=== PATIENT | male | born 1995 | race Caucasian/White ===

== ENCOUNTER 2018-04-08 11:19 | Emergency (ER) | payer OTHER ==
[2018-04-08 11:50] VITALS: BP 120/80; PULSE 52; RESP 16; TEMP 98.6
--- NOTE | 2018-04-08 12:12 | ED ---
Eye Problem HPI - General Chief complaint: Eye Problems Stated complaint: Eye injury Time Seen by Provider: 04/08/18 11:59 Source: patient Mode of arrival: ambulatory Limitations: no limitations - History of Present Illness Initial comments: This a 22-year-old male no past medical history presents today for chief complaint of blurred vision in the left eye. 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 He immediately noticed pain to left- sided face. And said that he saw stars. 3 days later he developed a subconjunctival hemorrhage, and some bruising below the eye. Since patient has been experiencing seeing darkening in the corner of the dye on the lateral aspect. 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 Patient denies any foreign body sensation, watering or photophobia, denies new onset of floaters, diplopia or pain with any extraocular eye movements. Patient denies any recent fever, chills, shortness of breath, chest pain, back pain, abdominal pain, nausea or vomiting, numbness or tingling, dysuria or hematuria, constipation or diarrhea, headaches or any other complaints. - Related Data Home Medications Medication Instructions Recorded Confirmed No Known Home Medications 04/08/18 04/08/18 Allergies Allergy/AdvReac Type Severity Reaction Status Date / Time No Known Allergies Allergy Verified 05/11/15 07:32 Review of Systems ROS Statement: Those systems with pertinent positive or pertinent negative responses have been documented in the HPI. ROS Other: All systems not noted in ROS Statement are negative. Constitutional: Denies: fever, chills Eyes: Reports: vision change. Denies: eye pain ENT: Denies: ear pain, throat pain Respiratory: Denies: cough, dyspnea Cardiovascular: Denies: chest pain, palpitations Gastrointestinal: Denies: abdominal pain, nausea, vomiting, diarrhea, constipation Genitourinary: Denies: urgency, dysuria Musculoskeletal: Denies: back pain Skin: Denies: rash, lesions Neurological: Denies: headache, weakness, numbness, paresthesias, confusion Past Medical History Past Medical History: No Reported History History of Any Multi-Drug Resistant Organisms: None Reported Past Surgical History: No Surgical Hx Reported Past Psychological History: Anxiety, Bipolar, Depression Smoking Status: Never smoker Past Alcohol Use History: Occasional Past Drug Use History: Marijuana General Exam - General Exam Comments Initial Comments: General: The patient is awake and alert, in no distress, and does not appear acutely ill. Eye: Mild soft tissue swelling over left lateral face just superior to the left orbit. Ecchymosis below left eye. Visual acuity 20/25 OS, 20/20 OD, 20/20 both eyes. +3 mm pupils are equal, round and reactive to light, extra-ocular movements are intact- no pain with EOM. No APD noted. Subconjunctival hemorrhage present on the lateral aspect of the left eye. There is normal conjunctiva of the right eye. No signs of icterus. Visual amaro intact to confrontation. Fluorescein examination revealed no areas of uptake, (-) siedel sign. No evidence of foreign body. Rectal examination performed however limited to no dilation, no obvious retinal abnormalities. IOP 18 b/l. Ears, nose, mouth and throat: There are moist mucous membranes and no oral lesions. Cardiovascular: There is a regular rate and rhythm. No murmur, rub or gallop is appreciated. Respiratory: Lungs are clear to auscultation, respirations are non-labored, breath sounds are equal. No wheezes, stridor, rales, or rhonchi. Musculoskeletal: Normal ROM, no tenderness. Strength 5/5. Sensation intact. Pulses equal bilaterally 2+. Neurological: A&O x 3. CN II-XII intact, There are no obvious motor or sensory deficits. Coordination appears grossly intact. Speech is normal. Skin: Skin is warm and dry and no rashes or lesions are noted. Psychiatric: Cooperative, appropriate mood & affect, normal judgment. Limitations: no limitations Course Vital Signs 04/08/18 11:46 Temperature 98.6 F Pulse Rate 52 L Respiratory 16 Rate Blood Pressure 120/80 O2 Sat by Pulse 97 Oximetry Medical Decision Making - Medical Decision Making given pt hx i was concerned for possible early retinal detachment or retinal injury. Dr. Harmon was paged, who instructed us to send pt immediately following discharge from ER to his office for further evaluation. Dr. Harmon does not have the resources available here for examination in house. Pt agreed and was stable to drive to the appointment. XR was obtained of the facial bones due to history of mild facial trauma, no evidence of orbital fracture seen by radiologist. pt denied diplopia, pain with EOM and there was no abnormalities noted on EOM examination. Case discussed with Dr. Mehta, who agrees with impression and plan. Pt was given instructions to go directly to Dr. Harmon, address supplied to pt. Pt d/c in stable condition. Disposition Clinical Impression: Changes in vision Narrative: possible retinal injury; being sent to Dr. Harmon for further evaluation. Disposition: HOME SELF-CARE Condition: Good Instructions: Subconjunctival Hemorrhage (ED) Additional Instructions: Please GO DIRECTLY TO DR. HARMON OFFICE immediately as discussed for further evaluation and treatment. [facility] [address] [place], [place]. Please return to emergency room if the symptoms increase or worsen or for any other concerns. Is patient prescribed a controlled substance at d/c from ED?: No Referrals: Lesa Bashir DO [Primary Care Provider] - 1-2 days Ariel Kruse MD [STAFF PHYSICIAN] - 04/08/18 Time of Disposition: 13:09
--- NOTE | 2018-04-08 13:03 | XR ---
EXAMINATION TYPE: XR facial bones complete DATE OF EXAM: 04/08/2018 COMPARISON: NONE HISTORY: Pain TECHNIQUE: 3 views submitted FINDINGS: Mucosal thickening involving the maxillary sinuses suggestive of sinusitis. No air-fluid le vels. Visualized nasal bones are intact. Lucency involving the nasal ethmoid plate. IMPRESSION: 1. No evidence of orbital fracture 2. Nasal septal deviation C and lucency near the ethmoidal plate. Correlate with point tenderness for nasal bone fracture.
== END 2018-04-08 13:16 | disposition home or self-care (01) ==
LOC: EC 11:19
DX: H53.8 Other visual disturbances (principal)
CPT/HCPCS: 70150; 99283

== ENCOUNTER 2018-06-11 08:48 | Emergency (ER) | payer OTHER ==
[2018-06-11] MEDS ORDERED: CYCLOBENZAPRINE 10MG STARTER 3 TAB BTL PO STA (09:19)
[2018-06-11] MEDS ORDERED: IBUPROFEN 600 MG STARTER PACK 4 TAB BTL PO STA (09:19)
--- NOTE | 2018-06-11 09:21 | ED ---
Back Pain HPI - General Chief Complaint: Back Pain/Injury Stated Complaint: Back pain Time Seen by Provider: 06/11/18 09:05 Source: patient, RN notes reviewed, old records reviewed Limitations: no limitations - History of Present Illness Initial Comments: Patient is a 22-year-old male presents emergency department today with chief complaint of right-sided back pain. Worse over the past few weeks. Patient reports that he has had bronchitis a few weeks ago. Initially started noticed this back pain when he was coughing a lot. He states that the back pain is worse with movement and at work. Patient reports that he has had no hearing symptoms, denies any nausea vomiting or dental pain. Denies any hematuria. 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 a pinching sensation.Patient denies any recent fever, chills, shortness of breath, chest pain,abdominal pain, nausea vomiting, numbness or tingling, dysuria or hematuria , constipation or diarrhea, headaches or visual changes, or any other current symptoms - Related Data Home Medications Medication Instructions Recorded Confirmed Naphazoline HCl/Glycerin [Clear 1 drop BOTH EYES DAILY 06/11/18 06/11/18 Eyes Max Redness Rlf Drp] Previous Rx's Medication Instructions Recorded Azithromycin [Zithromax Z-pack] 250 mg PO DIRECTED #6 tab 06/11/18 Cyclobenzaprine [Flexeril] 10 mg PO TID #9 tab 06/11/18 Ibuprofen 600 mg PO TID #20 tablet 06/11/18 Ibuprofen [Motrin] 600 mg PO Q8HR PRN #20 tab 06/11/18 Allergies Allergy/AdvReac Type Severity Reaction Status Date / Time No Known Allergies Allergy Verified 06/11/18 09:37 Review of Systems ROS Statement: Those systems with pertinent positive or pertinent negative responses have been documented in the HPI. ROS Other: All systems not noted in ROS Statement are negative. Past Medical History Past Medical History: No Reported History History of Any Multi-Drug Resistant Organisms: None Reported Past Surgical History: No Surgical Hx Reported Past Psychological History: Anxiety, Bipolar, Depression Smoking Status: Current every day smoker Past Alcohol Use History: Occasional Past Drug Use History: Marijuana General Exam - General Exam Comments Initial Comments: This is a 22-year-old male. Alert and oriented. Patient appears in no acute distress. Limitations: no limitations General appearance: alert, in no apparent distress Head exam: Present: atraumatic, normocephalic, normal inspection Eye exam: Present: normal appearance, PERRL, EOMI. Absent: scleral icterus, conjunctival injection, periorbital swelling ENT exam: Present: normal exam, mucous membranes moist Neck exam: Present: normal inspection. Absent: tenderness, meningismus, lymphadenopathy Respiratory exam: Present: normal lung sounds bilaterally, chest wall tenderness (Patient is tenderness over the right lower ribs 9 through 10. Evidence of right sided thoracic paraspinal muscle spasm.). Absent: respiratory distress, wheezes, rales, rhonchi, stridor Cardiovascular Exam: Present: regular rate, normal rhythm, normal heart sounds. Absent: systolic murmur, diastolic murmur, rubs, gallop, clicks GI/Abdominal exam: Present: soft, normal bowel sounds. Absent: distended, tenderness, guarding, rebound, rigid Extremities exam: Present: normal inspection, full ROM, normal capillary refill. Absent: tenderness, pedal edema, joint swelling, calf tenderness Back exam: Present: normal inspection Neurological exam: Present: alert, oriented X3, CN II-XII intact Course Vital Signs 06/11/18 08:57 Temperature 98.0 F Pulse Rate 64 Respiratory 20 Rate Blood Pressure 134/76 O2 Sat by Pulse 100 Oximetry Medical Decision Making - Medical Decision Making 22-year-old male present 0. Right-sided back pain. He reports it occurred after he was suffered from bronchitis having prolonged coughing. He has tender over the right thoracic spine. Evidence of paraspinal muscle spasm. Patient's chest x-ray today shows evidence of a left lower lobe opacity can't exclude pneumonia. He has no significant coughing at this time. Likely resolving from his bronchitis. Patient has no fever and oxygen sats 100% on room air. I discussed at this time I'll put the Patient on muscle relaxers and for anti- inflammatory medication. Written a note for work. I discussed close follow-up with primary care physician he has a cough for further symptoms he should return for reevaluation. - Radiology Data Radiology results: report reviewed New focal left lower lobe opacity. Unable to exclude developing pneumonia here. Disposition Clinical Impression: Pain in paraspinal region, Spasm of back muscles, Left pulmonary infiltrate on CXR Disposition: HOME SELF-CARE Condition: Good Instructions: Acute Low Back Pain (ED) Additional Instructions: Patient has a follow-up with primary care provider. Return to emergency department if any alarming signs or symptoms occur. Take medications as prescribed. Prescriptions: Azithromycin [Zithromax Z-pack] 250 mg PO DIRECTED #6 tab Cyclobenzaprine [Flexeril] 10 mg PO TID #9 tab Ibuprofen [Motrin] 600 mg PO Q8HR PRN #20 tab PRN Reason: Pain Ibuprofen 600 mg PO TID #20 tablet Is patient prescribed a controlled substance at d/c from ED?: No Referrals: Lesa Bashir DO [Primary Care Provider] - 1-2 days Time of Disposition: 10:24
--- NOTE | 2018-06-11 09:39 | XR ---
EXAMINATION TYPE: XR chest 2V DATE OF EXAM: 06/11/2018 COMPARISON: 06/25/2011 HISTORY: 22-year-old male with pain. TECHNIQUE: PA and lateral views FINDINGS: The cardiomediastinal silhouette, aorta, and pulmonary vasculature are within normal limits. There is no focal left lower lobe opacity. No pleural effusion. No pneumothorax. IMPRESSION: New focal left lower lobe opacity. Unable to exclude developing pneumonia here.
[2018-06-11 10:35] VITALS: BP 134/79; PULSE 84; RESP 18; TEMP 97.4
== END 2018-06-11 10:35 | disposition home or self-care (01) ==
LOC: EC 08:48
DX: M62.830 Muscle spasm of back (principal); R91.8 Other nonspecific abnormal finding of lung field; F17.200 Nicotine dependence, unspecified, uncomplicated; Z79.899 Other long term (current) drug therapy
CPT/HCPCS: 71046; 99284

== ENCOUNTER 2019-01-10 17:26 | Emergency (ER) | payer OTHER ==
[2019-01-10 17:37] VITALS: RESP 18
[2019-01-10] MEDS ORDERED: IBUPROFEN 800 MG TAB PO STA (17:59)
[2019-01-10] MEDS ORDERED: ACETAMINOPHEN TAB 500 MG TAB PO STA (17:59)
--- NOTE | 2019-01-10 18:02 | ED ---
General Adult HPI - General Chief complaint: Extremity Injury, Upper Stated complaint: Hand injury Time Seen by Provider: 01/10/19 17:50 Source: patient Mode of arrival: ambulatory Limitations: no limitations - History of Present Illness Initial comments: Patient is a 23-year-old male who presents with a chief complaint of left hand pain. This started at 4:00 after hitting a punching bag without gloves on. Patient states he is having pain on the medial aspect of his hand, on the dorsal side. It isn't initially was having pain up to his elbow but that pain has since subsided. He states he has some paresthesias of the fourth and fifth digit on his left hand, but is otherwise able to feel them. Characterizes his pain is sharp, worse with movement, no alleviating factors, he is not taking any medications for pain. - Related Data Home Medications Medication Instructions Recorded Confirmed Naphazoline HCl/Glycerin [Clear 1 drop BOTH EYES DAILY 06/11/18 06/11/18 Eyes Max Redness Rlf Drp] Previous Rx's Medication Instructions Recorded Azithromycin [Zithromax Z-pack] 250 mg PO DIRECTED #6 tab 06/11/18 Cyclobenzaprine [Flexeril] 10 mg PO TID #9 tab 06/11/18 Ibuprofen 600 mg PO TID #20 tablet 06/11/18 Ibuprofen [Motrin] 600 mg PO Q8HR PRN #20 tab 06/11/18 Allergies Allergy/AdvReac Type Severity Reaction Status Date / Time No Known Allergies Allergy Verified 01/10/19 17:37 Review of Systems ROS Statement: Those systems with pertinent positive or pertinent negative responses have been documented in the HPI. ROS Other: All systems not noted in ROS Statement are negative. Musculoskeletal: Reports: joint swelling, arthralgia Past Medical History Past Medical History: No Reported History History of Any Multi-Drug Resistant Organisms: None Reported Past Surgical History: No Surgical Hx Reported Past Psychological History: Anxiety, Bipolar, Depression Smoking Status: Current every day smoker Past Alcohol Use History: Occasional Past Drug Use History: Marijuana General Exam Limitations: no limitations General appearance: alert Head exam: Present: atraumatic, normocephalic Eye exam: Present: normal appearance ENT exam: Present: normal exam Neck exam: Present: normal inspection Respiratory exam: Present: normal lung sounds bilaterally. Absent: respiratory distress, wheezes Cardiovascular Exam: Present: regular rate, normal rhythm GI/Abdominal exam: Present: soft. Absent: distended, tenderness Rectal exam: Present: deferred Extremities exam: Present: other (Patient has swelling of the mid hand on the distal aspect, medial side. There is tenderness to palpation of the fifth metacarpal, no obvious deformity though examination is limited secondary to swelling. Patient is neurologically and vascularly intact bilaterally in the upper extremities.) Back exam: Present: normal inspection Neurological exam: Present: alert, oriented X3, CN II-XII intact, normal gait Psychiatric exam: Present: normal affect Skin exam: Present: warm, dry, intact Course Vital Signs 01/10/19 17:35 Temperature 98.7 F Pulse Rate 69 Respiratory 18 Rate Blood Pressure 166/63 O2 Sat by Pulse 100 Oximetry Medical Decision Making - Medical Decision Making The results of the chief complaint of left hand pain after hitting a punching bag. On initial evaluation, vitals are stable, patient is no acute distress. Patient is sent for an x-ray of the left hand rule out boxer's fracture. He was given Motrin and Tylenol for pain. X-rays show a boxer's fracture that is mildly angulated. This time, she'll be placed in a splint, is instructed to follow-up with orthopedics in one to 2 days, he was given contact information. Patient started taking Motrin for pain, is written a short course of Eclectic for severe pain. A long discussion with the patient about the use of this medication. Patient understands that he should not drive, work, doing and they put himself or others at risk of using this medication. Disposition Clinical Impression: Boxers fracture Disposition: HOME SELF-CARE Condition: Good Instructions (If sedation given, give patient instructions): Boxer Fracture (ED) Is patient prescribed a controlled substance at d/c from ED?: Yes When asked, does pt state using other controlled substances?: No If prescribed controlled substance>3 days was MAPS reviewed?: Prescribed <3 Days If opioid is for acute pain is fill amount 7 days or less?: Yes If Rx opioid, was Start Talking consent form obtained?: Yes Referrals: Lesa Bashir DO [Primary Care Provider] - 1-2 days Tomas Ibanez MD [STAFF PHYSICIAN] - 1-2 days
--- NOTE | 2019-01-10 18:50 | XR ---
EXAMINATION TYPE: XR hand complete LT DATE OF EXAM: 01/10/2019 CLINICAL HISTORY: Finger pain TECHNIQUE: Frontal, lateral and oblique images of the left hand are obtained. COMPARISON: None FINDINGS: Transversely oriented fracture is seen of the left fifth metacarpal involving the distal metadiaphysi s. There is no evidence of intra-articular extension of this fracture. There is dorsal angulation. No additional fractures are evident. Soft tissue swelling is seen in this region. No radiopaque foreign bodies. IMPRESSION: Transversely oriented dorsally angulated fifth metacarpal distal metadiaphyseal fracture.
[2019-01-10] MEDS ORDERED: HYDROcodone/APAP 5-325MG 1 EACH TAB PO STA (19:05)
[2019-01-10 19:31] VITALS: BP 150/80; PULSE 72; TEMP 97.9
== END 2019-01-10 19:31 | disposition home or self-care (01) ==
LOC: EC 17:26
DX: S62.307A Unspecified fracture of fifth metacarpal bone, left hand, initial encounter for closed fracture (principal); F17.200 Nicotine dependence, unspecified, uncomplicated; W21.89XA Striking against or struck by other sports equipment, initial encounter
CPT/HCPCS: 99283

== ENCOUNTER 2020-02-20 13:49 | Emergency (ER) | payer OTHER ==
[2020-02-20 14:02] VITALS: RESP 18; TEMP 97.9
[2020-02-20] MEDS ORDERED: SODIUM CHLORIDE 0.9% 1,000 ML IV STA (14:23)
[2020-02-20] MEDS ORDERED: KETOROLAC 30 MG/ML 1 ML VIAL IVP STA (14:23)
[2020-02-20 14:53] LABS: Basophils % (A) 1 %; Eosinophils # (A) 0.4 k/uL (0-0.7); Eosinophils % (A) 9 %; HCT 47.9 % (39.0-53.0); HGB 16.5 gm/dL (13.0-17.5); Lymphocytes # (A) 1.3 k/uL (1.0-4.8); Lymphocytes % (A) 30 %; MCH 31.1 pg (25.0-35.0); MCHC 34.5 g/dL (31.0-37.0); MCV 90.1 fL (80.0-100.0); Mean Platelet Volume 7.3; Monocytes # (A) 0.3 k/uL (0-1.0); Monocytes % (A) 6 %; Neutrophils # (A) 2.3 k/uL (1.3-7.7); Neutrophils % (A) 53 %; Platelet Count 234 k/uL (150-450); RBC 5.31 m/uL (4.30-5.90); RDW 12.1 % (11.5-15.5); WBC 4.4 k/uL (3.8-10.6)
--- NOTE | 2020-02-20 15:03 | ED ---
General Adult HPI - General Source: patient Mode of arrival: ambulatory Limitations: no limitations <Sadaf Pal - Last Filed: 02/20/20 16:42> <Linnette Blevins - Last Filed: 02/24/20 16:28> - General Chief complaint: Extremity Injury, Lower Stated complaint: R side abd pain Time Seen by Provider: 02/20/20 14:03 - History of Present Illness Initial comments: 24-year-old male patient presents to the emergency department today for evaluation of right hip and right lower abdominal pain. Patient states he has been having pain to the right hip for quite some time now. 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 The patient states that he has been doing her stretching regimen to aid in the hip pain. He states yesterday morning he woke up in the pain is in his right lower abdomen radiating down the leg. States it radiates to about mid thigh level. Denies any pain radiation to the testicles. Denies any testicular swelling or tenderness. He denies any nausea, vomiting, constipation, or diarrhea. Denies hematuria, dysuria, urinary frequency, urinary urgency. States the pain does worsen with movement. He did try taking ibuprofen, baclofen, [place] without relief. Denies fever or chills. Denies history of abdominal surgery. Patient denies any recent rash, cough, shortness of breath, chest pain, back pain, numbness, tingling, dizziness, weakness, headache, visual changes, or any other complaints. (Sadaf aPl) - Related Data Home Medications Medication Instructions Recorded Confirmed Ibuprofen [Motrin Ib] 200 mg PO Q8H PRN 02/20/20 02/20/20 Previous Rx's Medication Instructions Recorded Cyclobenzaprine [Flexeril] 10 mg PO TID #15 tab 02/20/20 Ketorolac [Toradol] 10 mg PO Q6HR #12 tab 02/20/20 Allergies Allergy/AdvReac Type Severity Reaction Status Date / Time No Known Allergies Allergy Verified 02/20/20 14:43 Review of Systems ROS Other: All systems not noted in ROS Statement are negative. <Sadaf Pal - Last Filed: 02/20/20 16:42> ROS Other: All systems not noted in ROS Statement are negative. <Linnette Blevins - Last Filed: 02/24/20 16:28> ROS Statement: Those systems with pertinent positive or pertinent negative responses have been documented in the HPI. Past Medical History Past Medical History: No Reported History History of Any Multi-Drug Resistant Organisms: None Reported Past Surgical History: No Surgical Hx Reported Past Psychological History: Anxiety, Bipolar, Depression Smoking Status: Current every day smoker Past Alcohol Use History: Occasional Past Drug Use History: Marijuana <Sadaf Pal - Last Filed: 02/20/20 16:42> General Exam Limitations: no limitations General appearance: alert, in no apparent distress, other (This is a well- developed, well-nourished adult male patient in no acute distress. Vital signs upon presentation are temperature 97.9F, pulse 58, respirations 18, blood pressure 119/77, pulse ox 100% on room air.) Eye exam: Present: normal appearance, PERRL, EOMI. Absent: scleral icterus, conjunctival injection, periorbital swelling ENT exam: Present: normal exam, normal oropharynx, mucous membranes moist Respiratory exam: Present: normal lung sounds bilaterally. Absent: respiratory distress, wheezes, rales, rhonchi, stridor Cardiovascular Exam: Present: regular rate, normal rhythm, normal heart sounds. Absent: systolic murmur, diastolic murmur, rubs, gallop, clicks GI/Abdominal exam: Present: soft, tenderness (Right upper quadrant, right lower quadrant, suprapubic), normal bowel sounds. Absent: distended, guarding, rebou nd, rigid Neurological exam: Present: alert, oriented X3, CN II-XII intact Psychiatric exam: Present: normal affect, normal mood Skin exam: Present: warm, dry, intact, normal color. Absent: rash <Sadaf Pal - Last Filed: 02/20/20 16:42> Course Vital Signs 02/20/20 02/20/20 13:58 15:58 Temperature 97.9 F Pulse Rate 58 L 60 Respiratory 18 18 Rate Blood Pressure 119/77 120/70 O2 Sat by Pulse 100 98 Oximetry Medical Decision Making - Lab Data Result diagrams: 02/20/20 14:38 02/20/20 14:38 <Sadaf Pal - Last Filed: 02/20/20 16:42> - Lab Data Result diagrams: 02/20/20 14:38 02/20/20 14:38 <Linnette Blevins - Last Filed: 02/24/20 16:28> - Medical Decision Making 24 year-old male patient presents to the emergency department today for evaluation of right hip pain radiating into his abdomen and thigh. Patient believes this is a strain from doing tae cinthia do and lifting a propane tank at work. Physical examination did reveal suprapubic, right lower quadrant, and right upper quadrant tenderness. Patient has no associated symptoms. No fever or chills. Vital signs are unremarkable. Labs reviewed and revealed normal white blood cell count, negative CRP, and otherwise unremarkable. Urinalysis did show 24 white blood cells, leukocyte esterase, bacteria. This was sent for culture however there is concern for sexually transmitted infection so we will treat with a azithromycin and Rocephin and send urine for culture. I did discuss findings and results with the patient. We did discuss muscle strain as a cause for his symptoms. He will be given a course of Toradol and muscle relaxers. Is instructed to follow-up with his primary care physician for recheck in 1-2 days. Return parameters discussed in detail. He verbalizes understanding and agrees with this plan. (Sadaf Pal) I was available for consultation in the emergency department. The history and physical exam were done by the midlevel provider. I was consulted for this patients care. I reviewed the case with the midlevel provider and based on their presentation of the patient, I agree with the assessment, medical decision making and plan of care as documented. Chart was dictated using [employer] dictation software. Attempts were made to correct any dictation errors however some typographical errors may persist. Patient was seen during a national state of emergency due to the Covid-19 pandemic. (Linnette Blevins) - Lab Data Lab Results 02/20/20 02/20/20 02/20/20 Range/Units 14:38 14:38 15:07 WBC 4.4 (3.8-10.6) k/uL RBC 5.31 (4.30-5.90) m/uL Hgb 16.5 (13.0-17.5) gm/dL Hct 47.9 (39.0-53.0) % MCV 90.1 (80.0-100.0) fL MCH 31.1 (25.0-35.0) pg MCHC 34.5 (31.0-37.0) g/dL RDW 12.1 (11.5-15.5) % Plt Count 234 (150-450) k/uL Neutrophils % 53 % Lymphocytes % 30 % Monocytes % 6 % Eosinophils % 9 % Basophils % 1 % Neutrophils # 2.3 (1.3-7.7) k/uL Lymphocytes # 1.3 (1.0-4.8) k/uL Monocytes # 0.3 (0-1.0) k/uL Eosinophils # 0.4 (0-0.7) k/uL Basophils # 0.0 (0-0.2) k/uL Sodium 137 (137-145) mmol/L Potassium 4.6 (3.5-5.1) mmol/L Chloride 103 (98-107) mmol/L Carbon Dioxide 25 (22-30) mmol/L Anion Gap 9 mmol/L BUN 12 (9-20) mg/dL Creatinine 0.84 (0.66-1.25) mg/dL Est GFR (CKD-EPI)AfAm >90 (>60 ml/min/1.73 sqM) Est GFR (CKD-EPI)NonAf >90 (>60 ml/min/1.73 sqM) Glucose 101 H (74-99) mg/dL Calcium 9.9 (8.4-10.2) mg/dL Total Bilirubin 1.0 (0.2-1.3) mg/dL AST 35 (17-59) U/L ALT 26 (4-49) U/L Alkaline Phosphatase 64 (38-126) U/L C-Reactive Protein <5.0 (<10.0) mg/L Total Protein 8.0 (6.3-8.2) g/dL Albumin 5.0 (3.5-5.0) g/dL Amylase 52 (30-110) U/L Lipase 33 (23-300) U/L Urine Color Yellow Urine Appearance Clear (Clear) Urine pH 7.5 (5.0-8.0) Ur Specific [place] 1.023 (1.001-1.035) Urine Protein Trace H (Negative) Urine Glucose (UA) Negative (Negative) Urine Ketones Negative (Negative) Urine Blood Negative (Negative) Urine Nitrite Negative (Negative) Urine Bilirubin Negative (Negative) Urine Urobilinogen 3.0 (<2.0) mg/dL Ur Leukocyte Esterase Moderate H (Negative) Urine RBC 3 (0-5) /hpf Urine WBC 24 H (0-5) /hpf Urine Mucus Few H (None) /hpf Disposition Is patient prescribed a controlled substance at d/c from ED?: No Time of Disposition: 15:56 <KaeSadaf M - Last Filed: 02/20/20 16:42> <Serjio Blevinsah Pb - Last Filed: 02/24/20 16:28> Clinical Impression: Strain of right hip, Abdominal pain Disposition: HOME SELF-CARE Condition: Good Instructions (If sedation given, give patient instructions): Muscle Strain (ED), Abdominal Pain (ED) Additional Instructions: Take medications as directed. Apply ice alternating with heat to the right hip and abdomen for relief of pain and inflammation. Follow-up with your primary care physician for recheck in 1-2 days. Follow up with orthopedics if her symptoms are improved after one week. Return to the emergency department immediately for any new, worsening, or concerning symptoms. Prescriptions: Cyclobenzaprine [Flexeril] 10 mg PO TID #15 tab Ketorolac [Toradol] 10 mg PO Q6HR #12 tab Referrals: Lesa Bashir DO [Primary Care Provider] - 1-2 days
[2020-02-20 15:05] LABS: ALT 26 U/L (4-49); AST 35 U/L (17-59); African American GFR (CKD) >90 (>60 ml/min/1.73 sqM); Alkaline Phosphatase 64 U/L (38-126); Amylase 52 U/L (30-110); Anion Gap 9 mmol/L; Blood Urea Nitrogen 12 mg/dL (9-20); C Reactive Protein <5.0 mg/L (<10.0); Calcium 9.9 mg/dL (8.4-10.2); Carbon Dioxide 25 mmol/L (22-30); Chloride 103 mmol/L (98-107); Glucose 101 mg/dL (74-99); Non-African American GFR(CKD) >90 (>60 ml/min/1.73 sqM); Potassium 4.6 mmol/L (3.5-5.1); Sodium 137 mmol/L (137-145)
--- NOTE | 2020-02-20 15:28 | XR ---
EXAMINATION TYPE: XR Hip RT and AP Pelvis DATE OF EXAM: 02/20/2020 COMPARISON: NONE HISTORY: Pain TECHNIQUE: 3 views FINDINGS: I see no fracture nor dislocation. Joint spaces are fairly normal. Sacroiliac joints appear intact. Pelvic ring is intact. IMPRESSION: No acute abnormality of the pelvis and right hip.
[2020-02-20 15:32] LABS: Appearance,Urine Clear (Clear); Bilirubin,Urine Negative (Negative); Blood,Urine Negative (Negative); Color,Urine Yellow; Glucose,Urine (UA) Negative (Negative); Ketones,Urine Negative (Negative); Leukocyte Esterase,Urine Moderate (Negative); Mucus,Urine Few /hpf; Nitrite,Urine Negative (Negative); PH, Urine 7.5 (5.0-8.0); Protein,Urine Trace (Negative); RBC,Urine 3 /hpf (0-5); Specific Gravity,Urine 1.023 (1.001-1.035); WBC,Urine 24 /hpf (0-5)
[2020-02-20] MEDS ORDERED: cefTRIAXone 250 MG VIAL IM STA (15:55)
[2020-02-20] MEDS ORDERED: AZITHROMYCIN 500 MG TAB PO STA (15:55)
[2020-02-20 16:05] VITALS: BP 120/70; PULSE 60
== END 2020-02-20 16:08 | disposition home or self-care (01) ==
LOC: EC 13:49
DX: S76.011A Strain of muscle, fascia and tendon of right hip, initial encounter (principal); R10.31 Right lower quadrant pain; R82.998 Other abnormal findings in urine; F17.200 Nicotine dependence, unspecified, uncomplicated; X50.0XXA Overexertion from strenuous movement or load, initial encounter; Y93.89 Activity, other specified; Y92.69 Other specified industrial and construction area as the place of occurrence of the external cause
CPT/HCPCS: 36415; 80053; 82150; 83690; 85025; 86140; 81001; 87086; 73502; 99284; 96372; 96374; 96361; J0696; J1885

== ENCOUNTER → 2020-03-02 | Outpatient (CLI) | payer OTHER ==
--- NOTE | 2020-03-02 08:11 | US ---
EXAMINATION TYPE: US abdomen complete DATE OF EXAM: 03/02/2020 COMPARISON: NONE CLINICAL HISTORY: 24-year-old male R10.31 RT lower quadrant pain. TECHNIQUE: Multiple sonographic images of the abdomen are obtained. FINDINGS: EXAM MEASUREMENTS: Liver Length: 18.7 cm Gallbladder Wall: 0.2 cm CBD: 0.3 cm Spleen: 10.5 cm Right Kidney: 11.5 x 5.8 x 4.3 cm Left Kidney: 11.6 x 5.8 x 5.3 cm Pancreas: wnl Liver: Normal echotexture. No focal lesion. Gallbladder: wnl Evidence for sonographic Hester's sign: No CBD: wnl Spleen: wnl Kidneys: No hydronephrosis. Upper IVC: wnl Abd Aorta: wnl IMPRESSION: 1. Mild hepatomegaly at 18.7 cm. 2. Otherwise, unremarkable sonographic examination of the abdomen.
== END | disposition home or self-care (01) ==
LOC: RADUSWWP 07:31
PROVIDERS: ATTEND Family Medicine
DX: R16.0 Hepatomegaly, not elsewhere classified (principal); R10.31 Right lower quadrant pain
CPT/HCPCS: 76700

== ENCOUNTER 2020-12-05 19:31 | Emergency (ER) | payer OTHER ==
[2020-12-05 20:17] VITALS: BP 109/63; PULSE 53; RESP 20; TEMP 98.2
--- NOTE | 2020-12-05 20:52 | XR ---
EXAMINATION TYPE: XR foot complete RT DATE OF EXAM: 12/05/2020 COMPARISON: NONE HISTORY: Foot pain TECHNIQUE: 3 views FINDINGS: Metatarsals are intact. I see no fracture nor dislocation. Joint spaces are normal. There a re no erosions. IMPRESSION: Negative right foot exam.
--- NOTE | 2020-12-05 20:53 | XR ---
EXAMINATION TYPE: XR ankle complete RT DATE OF EXAM: 12/05/2020 COMPARISON: NONE HISTORY: Foot pain ankle pain TECHNIQUE: 3 views FINDINGS: Ankle mortise is anatomic. I see no fracture nor dislocation. Joint spaces are normal. IMPRESSION: Negative right ankle exam.
--- NOTE | 2020-12-05 21:14 | ED ---
Lower Extremity Injury HPI - General Chief Complaint: Extremity Injury, Lower Stated Complaint: RT foot injury Time Seen by Provider: 12/05/20 20:30 Source: patient Mode of arrival: ambulatory Limitations: no limitations - History of Present Illness Initial Comments: Patient is a 25-year-old male presenting to the emergency Department with complaints of right foot pain after he accidentally hit a plywood barrier at his house earlier today. Patient states she was running him in his house when he actually tripped on this barrier hitting the front part of his right foot. He denies any previous injuries or surgeries of his right foot or ankle. He denies hitting his head or any other injuries from this fall. He has no further complaints. - Related Data Home Medications Medication Instructions Recorded Confirmed Ibuprofen [Motrin Ib] 200 mg PO Q8H PRN 02/20/20 02/20/20 Previous Rx's Medication Instructions Recorded Cyclobenzaprine [Flexeril] 10 mg PO TID #15 tab 02/20/20 Ketorolac [Toradol] 10 mg PO Q6HR #12 tab 02/20/20 Allergies Allergy/AdvReac Type Severity Reaction Status Date / Time No Known Allergies Allergy Verified 12/05/20 20:16 Review of Systems ROS Statement: Those systems with pertinent positive or pertinent negative responses have been documented in the HPI. ROS Other: All systems not noted in ROS Statement are negative. Past Medical History Past Medical History: No Reported History History of Any Multi-Drug Resistant Organisms: None Reported Past Surgical History: No Surgical Hx Reported Past Psychological History: Anxiety, Bipolar, Depression Smoking Status: Never smoker Past Alcohol Use History: Occasional Past Drug Use History: Marijuana General Exam - General Exam Comments Initial Comments: GENERAL: Patient is well-developed and well-nourished. Patient is nontoxic and in no acute distress. HEAD: Atraumatic, normocephalic. EYES: Pupils equal round and reactive to light, extraocular movements intact, sclera anicteric, conjunctiva are normal. Eyelids were unremarkable. ENT: Nares patent, oropharynx clear without exudates. Moist mucous membranes. NECK: Normal range of motion, supple without lymphadenopathy or JVD. LUNGS: Unlabored respirations. Breath sounds clear to auscultation bilaterally and eq ual. No wheezes rales or rhonchi. HEART: Regular rate and rhythm without murmurs, rubs or gallops. ABDOMEN: Soft, nontender, normoactive bowel sounds. : Deferred MUSCULOSKELETAL: has pain with palpation of dorsal aspect of the right foot, there is some mild swelling noted to this area, no deformity seen. He is neurovascularly intact. He has full right ankle range of motion. Painful toe extension. NEUROLOGICAL: Patient is alert and oriented x 3. Symmetrical smile. Normal speech. PSYCH: Normal mood, normal affect. SKIN: Warm, Dry, normal turgor, no rashes or lesions noted. Limitations: no limitations Course Vital Signs 12/05/20 20:13 Temperature 98.2 F Pulse Rate 53 L Respiratory 20 Rate Blood Pressure 109/63 O2 Sat by Pulse 100 Oximetry Medical Decision Making - Medical Decision Making Patient is a 25-year-old male here with right foot pain after he accidentally kicked a wooden barrier at his house earlier today. Does have some mild swelling present on the dorsal aspect of his right foot. X-rays of his right ankle and foot reveal no acute fractures dislocations. I discussed with patient this is a bone contusion. I recommended ice, ibuprofen for any discomfort. He can follow-up with his family doctor or orthopedics if symptoms persist after one week. He is in agreement with this plan of care and he is stable for discharge. Case discussed with Dr. Zheng Disposition Clinical Impression: Contusion of right foot Disposition: HOME SELF-CARE Condition: Stable Instructions (If sedation given, give patient instructions): Foot Contusion (ED) Additional Instructions: Please return to the Emergency Department if symptoms worsen or any other concerns. Recommend ice to the area, ibuprofen for any discomfort. Follow- up with your doctor or orthopedics if symptoms persist, without any improvement after one week. Is patient prescribed a controlled substance at d/c from ED?: No Referrals: Lesa Bashir DO [Primary Care Provider] - 1-2 days River Hester MD [STAFF PHYSICIAN] - 1-2 days
== END 2020-12-05 21:40 | disposition home or self-care (01) ==
LOC: EC 19:31
DX: S90.31XA Contusion of right foot, initial encounter (principal); F41.9 Anxiety disorder, unspecified; F32.9 Major depressive disorder, single episode, unspecified; F12.90 Cannabis use, unspecified, uncomplicated; Z79.1 Long term (current) use of non-steroidal anti-inflammatories (NSAID); W22.09XA Striking against other stationary object, initial encounter; Y92.009 Unspecified place in unspecified non-institutional (private) residence as the place of occurrence of the external cause; Y93.02 Activity, running
CPT/HCPCS: 99283

== ENCOUNTER 2021-01-11 16:53 | Emergency (ER) | payer OTHER ==
[2021-01-11 17:13] VITALS: TEMP 97.8
[2021-01-11] MEDS ORDERED: LIDOCAINE 1% INJ 10MG/ML (20 ML MDV) SQ ONE (19:05)
--- NOTE | 2021-01-11 19:07 | ED ---
General Adult HPI - General Chief complaint: Skin/Abscess/Foreign Body Stated complaint: Cyst on chest Time Seen by Provider: 01/11/21 18:45 Source: patient, RN notes reviewed Mode of arrival: ambulatory Limitations: no limitations - History of Present Illness Initial comments: Patient is a pleasant 25-year-old male presenting to the emergency department secondary to a sore on his chest. Patient states started a couple of days ago. Patient states it is uncomfortable. Patient states he was able to express a small amount of pus. No history of similar symptoms previously. No fever. Area is uncomfortable and does increase with touching. - Related Data Home Medications Medication Instructions Recorded Confirmed Ibuprofen [Motrin Ib] 200 mg PO Q8H PRN 02/20/20 02/20/20 Previous Rx's Medication Instructions Recorded Cyclobenzaprine [Flexeril] 10 mg PO TID #15 tab 02/20/20 Ketorolac [Toradol] 10 mg PO Q6HR #12 tab 02/20/20 Sulfamethox-Tmp 800-160Mg [Bactrim 2 each PO Q12HR #40 tab 01/11/21 DS 800-160 mg] Allergies Allergy/AdvReac Type Severity Reaction Status Date / Time No Known Allergies Allergy Verified 01/11/21 17:10 Review of Systems ROS Statement: Those systems with pertinent positive or pertinent negative responses have been documented in the HPI. ROS Other: All systems not noted in ROS Statement are negative. Constitutional: Denies: fever, chills Eyes: Denies: eye pain ENT: Denies: ear pain Respiratory: Denies: cough Cardiovascular: Denies: chest pain Endocrine: Denies: fatigue Gastrointestinal: Denies: abdominal pain Genitourinary: Denies: dysuria Skin: Reports: rash Past Medical History Past Medical History: No Reported History History of Any Multi-Drug Resistant Organisms: None Reported Past Surgical History: No Surgical Hx Reported Past Psychological History: Anxiety, Bipolar, Depression Smoking Status: Current every day smoker Past Alcohol Use History: Occasional Past Drug Use History: Marijuana General Exam Limitations: no limitations General appearance: in no apparent distress Head exam: Present: normocephalic Eye exam: Present: normal appearance Respiratory exam: Present: normal lung sounds bilaterally Cardiovascular Exam: Present: regular rate, normal rhythm GI/Abdominal exam: Present: soft. Absent: tenderness Extremities exam: Present: normal inspection Neurological exam: Present: alert Psychiatric exam: Present: normal affect, normal mood Skin exam: Present: rash (Patient does have abscess under the right nipple approximate one by 3 cm. 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 Disposition Clinical Impression: Chest wall abscess Disposition: HOME SELF-CARE Condition: Stable Instructions (If sedation given, give patient instructions): Abscess (ED) Additional Instructions: Please do follow-up with primary care physician within 48 hours for reevaluation and removal of packing. Return for increased redness, increased swelling, fevers, increased pain, worsening or change in symptoms or any other concerns. Prescriptions for antibiotics has been sent to pharmacy, please start this first thing in the morning. Prescriptions: Sulfamethox-Tmp 800-160Mg [Bactrim DS 800-160 mg] 2 each PO Q12HR #40 tab Is patient prescribed a controlled substance at d/c from ED?: No Referrals: Lesa Bashir DO [Primary Care Provider] - 1-2 days Time of Disposition: 19:26
[2021-01-11] MEDS ORDERED: SULFAMETHOX-TMP 800-160MG 1 EACH TAB PO STA (19:23)
[2021-01-11 19:50] VITALS: PULSE 77
[2021-01-11 19:59] VITALS: BP 125/75; RESP 18
== END 2021-01-11 19:59 | disposition home or self-care (01) ==
LOC: EC 16:53
DX: L02.213 Cutaneous abscess of chest wall (principal); B95.62 Methicillin resistant Staphylococcus aureus infection as the cause of diseases classified elsewhere; F41.9 Anxiety disorder, unspecified; F32.9 Major depressive disorder, single episode, unspecified; F17.200 Nicotine dependence, unspecified, uncomplicated; F12.90 Cannabis use, unspecified, uncomplicated
CPT/HCPCS: 87070; 87205; 87077; 87186; 99283; 10060; J2001

== ENCOUNTER 2021-01-16 09:06 | Emergency (ER) | payer OTHER ==
[2021-01-16 09:11] VITALS: BP 133/82; PULSE 77; RESP 18; TEMP 98.1
--- NOTE | 2021-01-16 09:23 | ED ---
General Adult HPI - General Chief complaint: Skin/Abscess/Foreign Body Stated complaint: revisit - abscess on chest Time Seen by Provider: 01/16/21 09:16 Source: patient, RN notes reviewed, old records reviewed Mode of arrival: ambulatory Limitations: no limitations - History of Present Illness Initial comments: 25-year-old male presenting for reevaluation of chest wall abscess. Patient had incision and drainage on January 11. He's been on Bactrim since that time. He denies fevers or constitutional symptoms. He states it has continued to drain the packing has been removed. He states that the redness is overall improving. He wanted a reevaluation to ensure proper healing. - Related Data Home Medications Medication Instructions Recorded Confirmed Ibuprofen [Motrin Ib] 200 mg PO Q8H PRN 02/20/20 02/20/20 Previous Rx's Medication Instructions Recorded Cyclobenzaprine [Flexeril] 10 mg PO TID #15 tab 02/20/20 Ketorolac [Toradol] 10 mg PO Q6HR #12 tab 02/20/20 Sulfamethox-Tmp 800-160Mg [Bactrim 2 each PO Q12HR #40 tab 01/11/21 DS 800-160 mg] Allergies Allergy/AdvReac Type Severity Reaction Status Date / Time No Known Allergies Allergy Verified 01/16/21 09:11 Review of Systems ROS Statement: Those systems with pertinent positive or pertinent negative responses have been documented in the HPI. ROS Other: All systems not noted in ROS Statement are negative. Past Medical History Past Medical History: No Reported History History of Any Multi-Drug Resistant Organisms: MRSA Date of last positivie culture/infection: 01/11/21 MDRO Source:: Chest-cyst Past Surgical History: No Surgical Hx Reported Past Psychological History: Anxiety, Bipolar, Depression Smoking Status: Current every day smoker Past Alcohol Use History: Occasional Past Drug Use History: Marijuana General Exam Limitations: no limitations General appearance: alert, in no apparent distress Head exam: Present: atraumatic, normocephalic Eye exam: Present: normal appearance, PERRL ENT exam: Present: normal exam Neck exam: Present: normal inspection. Absent: tenderness, meningismus Respiratory exam: Present: normal lung sounds bilaterally. Absent: respiratory distress, wheezes Cardiovascular Exam: Present: regular rate, normal rhythm GI/Abdominal exam: Present: soft. Absent: distended, tenderness, guarding Extremities exam: Present: normal inspection, full ROM Neurological exam: Present: alert, oriented X3 Psychiatric exam: Present: normal affect, normal mood Skin exam: Present: other (Right chest wall abscess, incision is still open there is minimal purulent drainage, minimal surrounding erythema approximately 4 cm, as well as induration. No central fluctuance.) Course Vital Signs 01/16/21 09:07 Temperature 98.1 F Pulse Rate 77 Respiratory 18 Rate Blood Pressure 133/82 O2 Sat by Pulse 100 Oximetry Medical Decision Making - Medical Decision Making Abscess appears well healing, patient states this is improved. There continues to be some residual erythema and induration but this is appropriate for number of days of treatment. He will continue warm compresses at home. He will continue on antibiotics he has 6 additional days of antibiotics. Disposition Clinical Impression: Chest wall abscess Disposition: HOME SELF-CARE Condition: Good Instructions (If sedation given, give patient instructions): Abscess (ED) Is patient prescribed a controlled substance at d/c from ED?: No Referrals: Lesa Bashir DO [Primary Care Provider] - 1-2 days Time of Disposition: 09:23
== END 2021-01-16 09:34 | disposition home or self-care (01) ==
LOC: EC 09:06
DX: L02.213 Cutaneous abscess of chest wall (principal); F41.9 Anxiety disorder, unspecified; F32.9 Major depressive disorder, single episode, unspecified; F17.200 Nicotine dependence, unspecified, uncomplicated; F12.90 Cannabis use, unspecified, uncomplicated
CPT/HCPCS: 99282

== ENCOUNTER 2021-04-22 11:21 | Emergency (ER) | payer OTHER ==
[2021-04-22 11:33] VITALS: TEMP 98.1
[2021-04-22] MEDS ORDERED: ACET/COD 300 MG/30 MG STARTER PACK 6 TAB BTL PO STA (11:56)
[2021-04-22] MEDS ORDERED: CEPHALEXIN 500MG STARTER PACK 4 CAP BTL PO STA (11:56)
--- NOTE | 2021-04-22 11:56 | ED ---
General Adult HPI - General Chief complaint: Skin/Abscess/Foreign Body Stated complaint: skin infection Time Seen by Provider: 04/22/21 11:45 Source: patient, RN notes reviewed Mode of arrival: ambulatory Limitations: no limitations - History of Present Illness Initial comments: 25-year-old male presents emergency Department with chief complaint of abscess on his chest. Patient states he had one like this similar and had open but states is for discharge last couple days. Patient states is tender. No fevers or chills no other complaints no drainage. - Related Data Home Medications Medication Instructions Recorded Confirmed Ibuprofen [Motrin Ib] 200 mg PO Q8H PRN 02/20/20 02/20/20 Previous Rx's Medication Instructions Recorded Cyclobenzaprine [Flexeril] 10 mg PO TID #15 tab 02/20/20 Ketorolac [Toradol] 10 mg PO Q6HR #12 tab 02/20/20 Sulfamethox-Tmp 800-160Mg [Bactrim 2 each PO Q12HR #40 tab 01/11/21 DS 800-160 mg] Cephalexin [Keflex] 500 mg PO Q6HR #40 cap 04/22/21 Ibuprofen [Motrin] 600 mg PO Q8HR PRN #20 tab 04/22/21 Sulfamethox-Tmp 800-160Mg [Bactrim 1 each PO Q12HR #20 tab 04/22/21 Ds] Allergies Allergy/AdvReac Type Severity Reaction Status Date / Time No Known Allergies Allergy Verified 04/22/21 11:33 Review of Systems ROS Statement: Those systems with pertinent positive or pertinent negative responses have been documented in the HPI. ROS Other: All systems not noted in ROS Statement are negative. Past Medical History Past Medical History: No Reported History History of Any Multi-Drug Resistant Organisms: MRSA Date of last positivie culture/infection: 01/11/21 MDRO Source:: Chest-cyst Past Surgical History: No Surgical Hx Reported Past Psychological History: Anxiety, Bipolar, Depression Smoking Status: Current every day smoker Past Alcohol Use History: Occasional Past Drug Use History: Marijuana General Exam Limitations: no limitations General appearance: alert, in no apparent distress Head exam: Present: atraumatic, normocephalic, normal inspection Eye exam: Present: normal appearance, PERRL, EOMI. Absent: scleral icterus, conjunctival injection, periorbital swelling ENT exam: Present: normal exam, mucous membranes moist Neck exam: Present: normal inspection, full ROM. Absent: tenderness, meningismus, lymphadenopathy Respiratory exam: Present: normal lung sounds bilaterally, other (Small 1 cm abscess on the left chest also the areola there is nonfluctuant minimal erythema). Absent: respiratory distress, wheezes, rales, rhonchi, stridor Cardiovascular Exam: Present: regular rate, normal rhythm, normal heart sounds. Absent: systolic murmur, diastolic murmur, rubs, gallop, clicks Course Vital Signs 04/22/21 11:30 Temperature 98.1 F Pulse Rate 57 L Respiratory 18 Rate Blood Pressure 127/79 O2 Sat by Pulse 92 L Oximetry Medical Decision Making - Medical Decision Making Patient is a nonfluctuant abscess early abscess. Patient was started on Bactrim and Keflex to do warm compresses return parameters were discussed. Disposition Clinical Impression: Chest wall abscess Disposition: HOME SELF-CARE Condition: Stable Instructions (If sedation given, give patient instructions): Abscess (ED) Additional Instructions: Please return to the Emergency Department if symptoms worsen or any other concerns. Prescriptions: Sulfamethox-Tmp 800-160Mg [Bactrim Ds] 1 each PO Q12HR #20 tab Cephalexin [Keflex] 500 mg PO Q6HR #40 cap Ibuprofen [Motrin] 600 mg PO Q8HR PRN #20 tab PRN Reason: Pain Is patient prescribed a controlled substance at d/c from ED?: No Referrals: Lesa Bashir DO [Primary Care Provider] - 1-2 days Time of Disposition: 11:56
[2021-04-22 12:08] VITALS: BP 132/87; PULSE 79; RESP 20
== END 2021-04-22 12:08 | disposition home or self-care (01) ==
LOC: EC 11:21
DX: L02.213 Cutaneous abscess of chest wall (principal); F41.9 Anxiety disorder, unspecified; F31.9 Bipolar disorder, unspecified; F17.200 Nicotine dependence, unspecified, uncomplicated; F12.90 Cannabis use, unspecified, uncomplicated
CPT/HCPCS: 99282

== ENCOUNTER 2022-08-29 22:00 | Emergency (ER) | payer OTHER ==
--- NOTE | 2022-08-29 23:10 | XR ---
EXAMINATION TYPE: XR knee complete RT DATE OF EXAM: 08/29/2022 COMPARISON: NONE HISTORY: Knee pain TECHNIQUE: 3 view FINDINGS: There is no fracture nor dislocation. Joint spaces are normal. No pathologic calcification. No sign of joint effusion. IMPRESSION: Negative right knee exam. No fracture.
[2022-08-29] MEDS ORDERED: KETOROLAC 15 MG/ML 1 ML VIAL IM STA (23:12)
--- NOTE | 2022-08-29 23:28 | ED ---
Lower Extremity Injury HPI - General Chief Complaint: Extremity Injury, Lower Stated Complaint: R knee pain Time Seen by Provider: 08/29/22 22:27 Source: patient Mode of arrival: ambulatory Limitations: no limitations - History of Present Illness Initial Comments: Patient is a 27-year-old male who presents to the emergency department with a chief complaint of right knee pain. Pain started 2 weeks ago after bowling. Patient feels that he may have twisted his knee while bowling. Exact mechanism unknown. Patient has pain over the front and outside of his right knee which is worse with walking. 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 Denies numbness and tingling. Taking Motrin with some relief. - Related Data Home Medications Medication Instructions Recorded Confirmed Ibuprofen [Motrin Ib] 200 mg PO Q8H PRN 02/20/20 02/20/20 Previous Rx's Medication Instructions Recorded Cyclobenzaprine [Flexeril] 10 mg PO TID #15 tab 02/20/20 Ketorolac [Toradol] 10 mg PO Q6HR #12 tab 02/20/20 Sulfamethox-Tmp 800-160Mg [Bactrim 2 each PO Q12HR #40 tab 01/11/21 DS 800-160 mg] Cephalexin [Keflex] 500 mg PO Q6HR #40 cap 04/22/21 Ibuprofen [Motrin] 600 mg PO Q8HR PRN #20 tab 04/22/21 Sulfamethox-Tmp 800-160Mg [Bactrim 1 each PO Q12HR #20 tab 04/22/21 Ds] HYDROcodone/APAP 7.5-325MG [[place] 1 tab PO Q4HR PRN 3 Days #18 tab 08/29/22 7.5-325] Ibuprofen [Motrin] 800 mg PO Q8HR PRN #30 tab 08/29/22 Allergies Allergy/AdvReac Type Severity Reaction Status Date / Time No Known Allergies Allergy Verified 04/22/21 11:33 Review of Systems ROS Statement: Those systems with pertinent positive or pertinent negative responses have been documented in the HPI. ROS Other: All systems not noted in ROS Statement are negative. Past Medical History Past Medical History: No Reported History History of Any Multi-Drug Resistant Organisms: MRSA Date of last positivie culture/infection: 01/11/21 MDRO Source:: Chest-cyst Past Surgical History: No Surgical Hx Reported Past Psychological History: Anxiety, Bipolar, Depression Smoking Status: Current every day smoker Past Alcohol Use History: Occasional Past Drug Use History: Marijuana General Exam Limitations: no limitations General appearance: alert, in no apparent distress Head exam: Present: atraumatic, normocephalic, normal inspection Eye exam: Present: normal appearance, PERRL, EOMI. Absent: scleral icterus, con junctival injection, periorbital swelling Respiratory exam: Present: normal lung sounds bilaterally. Absent: respiratory distress, wheezes, rales, rhonchi, stridor Cardiovascular Exam: Present: regular rate, normal rhythm, normal heart sounds. Absent: systolic murmur, diastolic murmur, rubs, gallop, clicks Right Upper Leg exam: Present: normal inspection, full ROM. Absent: tenderness, swelling Knee exam: Present: normal inspection, full ROM (significant pain with flexion ), tenderness (lateral and anterior knee), crepitus, pain/laxity with valgus. Absent: swelling, abrasion, laceration, ecchymosis, deformity, dislocation, erythema, effusion Lower Leg exam: Present: normal inspection, full ROM. Absent: tenderness, swelling Neurovascular tendon exam: Present: no vascular compromise Neurological exam: Present: alert, oriented X3, CN II-XII intact Psychiatric exam: Present: normal affect, normal mood Skin exam: Present: warm, dry, intact, normal color. Absent: rash Course Vital Signs 08/29/22 08/29/22 22:23 23:29 Temperature 97 F L 98.6 F Pulse Rate 72 73 Respiratory 16 18 Rate Blood Pressure 153/69 108/70 O2 Sat by Pulse 99 98 Oximetry Medical Decision Making - Medical Decision Making Was pt. sent in by a medical professional or institution (, PA, CHILD CARE LEAD TEACHER, urgent care, hospital, or [facility]...) When possible be specific @ -[No] Did you speak to anyone other than the patient for history (EMS, parent, family, police, friend...)? What history was obtained from this source @ -[No] Did you review nursing and triage notes (agree or disagree)? Why? @ -[I reviewed and agree with nursing and triage notes] Were old charts reviewed (outside hosp., previous admission, EMS record, old EKG, old radiological studies, urgent care reports/EKG's, [facility] records)? Report findings @ -[No old charts were reviewed] Differential Diagnosis (chest pain, altered mental status, abdominal pain women, abdominal pain men, vaginal bleeding, weakness, fever, dyspnea, syncope, headache, dizziness, GI bleed, back pain, seizure, CVA, palpatations, mental health)? @ -ACL tear, menisci injury, knee fracture, EKG interpreted by me (3pts min.). @ -NA X-rays interpreted by me (1pt min.). @ -Yes, right knee xray negative for acute process CT interpreted by me (1pt min.). @ -[None done] U/S interpreted by me (1pt. min.). @ -[None done] What testing was considered but not performed or refused? (CT, X-rays, U/S, labs)? Why? @ -[None] What meds were considered but not given or refused? Why? @ -[None] Did you discuss the management of the patient with other professionals (professionals i.e. , PA, CHILD CARE LEAD TEACHER, lab, RT, psych nurse, social media director, flight test shop mechanic, teacher, radio officer, block and case maker)? Give summary @ -[No] Was smoking cessation discussed for >3mins.? @ -[No] Was critical care preformed (if so, how long)? @ -[No] Were there social determinants of health that impacted care today? How? (Ho melessness, low income, unemployed, alcoholism, drug addiction, transportation, low edu. Level, literacy, decrease access to med. care, detention, rehab)? @ -[No] Was there de-escalation of care discussed even if they declined (Discuss DNR or withdrawal of care, Hospice)? DNR status @ -[No] What co-morbidities impacted this encounter? (DM, HTN, Smoking, COPD, CAD, Cancer, CVA, ARF, Chemo, Hep., AIDS, mental health diagnosis, sleep apnea, morbid obesity)? @ -[None] Was patient admitted / discharged? Hospital course, mention meds given and route, prescriptions, significant lab abnormalities, going to OR and other pertinent info. @ -This is a 27-year-old male presenting with right knee pain. Patient has significant pain with range of motion. X-ray negative for acute process. There is concern for tendon/ligament injury. Patient placed in knee immobilizer. Gi alexis crutches with nonweightbearing until orthopedic evaluation. He is referred. Undiagnosed new problem with uncertain prognosis? @ -No Drug Therapy requiring intensive monitoring for toxicity (Heparin, Nitro, Insulin, Cardizem)? @ -[No] Were any procedures done? @ -[No] Diagnosis/symptom? @ -right knee injury Acute, or Chronic, or Acute on Chronic? @ -acute Uncomplicated (without systemic symptoms) or Complicated (systemic symptoms)? @ -uncomplicated Side effects of treatment? @ -[No] Exacerbation, Progression, or Severe Exacerbation? @ -[No] Poses a threat to life or bodily function? How? (Chest pain, USA, ID, pneumonia, PE, COPD, DKA, ARF, appy, cholecystitis, CVA, Diverticulitis, Homicidal, Suicidal, threat to staff... and all critical care pts) @ -[No] Dr. Blevins is my attending. Disposition Clinical Impression: Right knee injury Disposition: HOME SELF-CARE Instructions (If sedation given, give patient instructions): Knee Pain (ED), Knee Immobilizer (ED) Additional Instructions: Rest, ice, and elevate injury. Keep knee immobilizer on and use crutches until orthopedic evaluation. Do not bear weight until cleared. Take medication as directed. Return to the emergency department if you experience new, concerning, or worsening symptoms. Prescriptions: Ibuprofen [Motrin] 800 mg PO Q8HR PRN #30 tab PRN Reason: Pain HYDROcodone/APAP 7.5-325MG [[place] 7.5-325] 1 tab PO Q4HR PRN 3 Days #18 tab PRN Reason: Pain Is patient prescribed a controlled substance at d/c from ED?: Yes If prescribed controlled substance>3 days was MAPS reviewed?: Yes Referrals: Lesa Bashir DO [Primary Care Provider] - 1-2 days River Hester MD [STAFF PHYSICIAN] - 1-2 days
[2022-08-29 23:29] VITALS: BP 108/70; PULSE 73; RESP 18; TEMP 98.6
== END 2022-08-29 23:47 | disposition home or self-care (01) ==
LOC: EC 22:00
DX: S89.91XA Unspecified injury of right lower leg, initial encounter (principal); F41.9 Anxiety disorder, unspecified; F31.9 Bipolar disorder, unspecified; F12.90 Cannabis use, unspecified, uncomplicated; F17.200 Nicotine dependence, unspecified, uncomplicated; Y93.54 Activity, bowling
CPT/HCPCS: 73562; 99283; 96372; L1830; J1885

== ENCOUNTER → 2022-09-19 | Outpatient (CLI) | payer OTHER ==
--- NOTE | 2022-09-19 16:38 | MR ---
EXAMINATION TYPE: MR knee RT wo con DATE OF EXAM: 09/19/2022 COMPARISON: Right knee x-ray August 29, 2022 HISTORY: Rt knee pain, swelling, joint instability, patellar tendon rupture TECHNIQUE: Multiplanar, multisequence images of the knee is performed without IV contrast. FINDINGS: MEDIAL MENISCUS: Oblique and triangular shaped increased signal posterior horn extends to inferior ar ticular surface. LATERAL MENISCUS: Anterior and posterior horns are intact without tear. CRUCIATE LIGAMENTS: The anterior and posterior cruciate ligaments are intact and unremarkable. COLLATERAL LIGAMENTS: The medial collateral ligament and lateral collateral ligament complex are inta ct and unremarkable. EXTENSOR MECHANISM: Visualized quadriceps and patellar tendons are intact. Slight focal swallowing an d increased fluid anterior infrapatellar space just proximal to the proximal patellar tendon. EFFUSION: No significant suprapatellar joint effusion. POPLITEAL CYST: Tiny popliteal/jones cyst. TRICOMPARTMENT SPACES: Tricompartment joint spaces are maintained. No significant spurring is seen. CARTILAGE: Tricompartmental articular cartilage is preserved. BONE MARROW SIGNAL: No focal abnormal marrow signal is appreciated. OTHER: No additional significant abnormality is appreciated. IMPRESSION: 1. Full-thickness tear posterior horn of medial meniscus. 2. Tiny popliteal cyst. 3. Small subcutaneous edema or injury anterior to the proximal patellar tendon. No patellar tendon te ar seen.
== END | disposition home or self-care (01) ==
LOC: RADMRIMAIN 15:22
PROVIDERS: ATTEND Orthopaedic Surgery
DX: S86.811A Strain of other muscle(s) and tendon(s) at lower leg level, right leg, initial encounter (principal); M71.21 Synovial cyst of popliteal space [Baker], right knee

== ENCOUNTER 2023-07-25 08:27 | Emergency (ER) | payer OTHER ==
[2023-07-25 08:59] VITALS: BP 135/95; PULSE 78; RESP 20; TEMP 98.1
--- NOTE | 2023-07-25 09:05 | XR ---
EXAMINATION TYPE: XR shoulder complete LT DATE OF EXAM: 07/25/2023 8:57 AM CLINICAL INDICATION:Male, 27 years old with history of pain; COMPARISON: None TECHNIQUE: XR shoulder complete LT; shoulder was examined in AP, internally rotated and scapular Y p rojections. FINDINGS: No evidence of acute osseous pathology, joint dislocation, or soft tissue swelling. The remaining po rtions of the visualized chest are unremarkable. Sclerotic focus within the humeral head likely representing bone island. Measuring 7 mm. IMPRESSION: No acute osseous pathology.
--- NOTE | 2023-07-25 09:52 | ED ---
General Adult HPI - General Chief complaint: Extremity Injury, Upper Stated complaint: left shoulder pain Time Seen by Provider: 07/25/23 08:44 Source: patient, RN notes reviewed Mode of arrival: ambulatory Limitations: no limitations - History of Present Illness Initial comments: Patient 27-year-old male with no significant past mental history, presented to the emergency room today with a chief complaint of pain to left shoulder. 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 He states he's had some pain off and on the left shoulder but is been happening more often this past week. He states it's worse with certain movements of extension, abduction greater than 90. Patient denies any specific injury or trauma. He denies any other complaints or any other symptoms. Patient denies any recent fever, chills, shortness of breath, chest pain, back pain, abdominal pain, nausea or vomiting, numbness or tingling, headaches or visual changes, or any other complaints. - Related Data Home Medications Medication Instructions Recorded Confirmed Ibuprofen [Motrin Ib] 200 mg PO Q8H PRN 02/20/20 02/20/20 Previous Rx's Medication Instructions Recorded Cyclobenzaprine [Flexeril] 10 mg PO TID #15 tab 02/20/20 Ketorolac [Toradol] 10 mg PO Q6HR #12 tab 02/20/20 Sulfamethox-Tmp 800-160Mg [Bactrim 2 each PO Q12HR #40 tab 01/11/21 DS 800-160 mg] Cephalexin [Keflex] 500 mg PO Q6HR #40 cap 04/22/21 Ibuprofen [Motrin] 600 mg PO Q8HR PRN #20 tab 04/22/21 Sulfamethox-Tmp 800-160Mg [Bactrim 1 each PO Q12HR #20 tab 04/22/21 Ds] HYDROcodone/APAP 7.5-325MG [[place] 1 tab PO Q4HR PRN 3 Days #18 tab 08/29/22 7.5-325] Ibuprofen [Motrin] 800 mg PO Q8HR PRN #30 tab 08/29/22 Ibuprofen [Motrin] 600 mg PO Q6HR PRN #40 day 07/25/23 Allergies Allergy/AdvReac Type Severity Reaction Status Date / Time No Known Allergies Allergy Verified 07/25/23 08:44 Review of Systems ROS Statement: Those systems with pertinent positive or pertinent negative responses have been documented in the HPI. ROS Other: All systems not noted in ROS Statement are negative. Past Medical History Past Medical History: No Reported History History of Any Multi-Drug Resistant Organisms: MRSA Date of last positivie culture/infection: 01/11/21 MDRO Source:: Chest-cyst Past Surgical History: No Surgical Hx Reported Past Psychological History: Anxiety, Bipolar, Depression Smoking Status: Vaper Past Alcohol Use History: Occasional Past Drug Use History: Marijuana General Exam - General Exam Comments Initial Comments: General: The patient is awake and alert, in no distress, and does not appear acutely ill. Neck: The neck is supple, there is no tenderness or JVD. Cardiovascular: There is a regular rate and rhythm. No murmur, rub or gallop is appreciated. Respiratory: Lungs are clear to auscultation, respirations are non-labored, breath sounds are equal. No wheezes, stridor, rales, or rhonchi. Musculoskeletal: Normal appearance left shoulder. He shows limited range of motion of extension with abduction greater than 90. Patient has good passive range of motion. Pulses 2+ sensations intact. Strength is decreased with certain movement due to pain. Neurological: A&O x 3. CN II-XII intact, There are no obvious motor or sensory deficits. Coordination appears grossly intact. Speech is normal. Skin: Skin is warm and dry and no rashes or lesions are noted. Psychiatric: Normal mood and affect. Limitations: no limitations Course Vital Signs 07/25/23 08:41 Temperature 98.1 F Pulse Rate 78 Respiratory 20 Rate Blood Pressure 135/95 O2 Sat by Pulse 98 Oximetry Medical Decision Making - Medical Decision Making 27-year-old male presented to the emergency room today with chief complaint of left shoulder pain. Patient denies any specific injury or trauma. Does admit that the symptoms been present for sometime and works construction. The pain is reproduced with certain movements. X-ray was reviewed by myself and shows no acute fracture or dislocation. Was discussed with patient about concern for issues with rotator cuff injury to follow with orthopedics. Patient will be continued on anti-inflammatories [facility] Patient advised return if any symptoms increase or worsen or for any other concerns. Disposition Clinical Impression: Shoulder pain Disposition: HOME SELF-CARE Condition: Good Instructions (If sedation given, give patient instructions): Rotator Cuff Injury (ED) Additional Instructions: Please follow-up orthopedics as discussed. Please ibuprofen as prescribed. Return for any other concerns. Prescriptions: Ibuprofen [Motrin] 600 mg PO Q6HR PRN #40 day PRN Reason: Pain Is patient prescribed a controlled substance at d/c from ED?: No Referrals: Lesa Bashir DO [Primary Care Provider] - 1-2 days Time of Disposition: 09:52
== END 2023-07-25 10:05 | disposition home or self-care (01) ==
LOC: EC 08:27
DX: M25.512 Pain in left shoulder (principal); Z86.59 Personal history of other mental and behavioral disorders; F17.290 Nicotine dependence, other tobacco product, uncomplicated; F12.90 Cannabis use, unspecified, uncomplicated
CPT/HCPCS: 99283